=== PATIENT | male | born 1960 | race Two or more races ===

== ENCOUNTER 2019-01-14 03:51 | Inpatient (IN) | payer SELFPAY ==
[~2019-01-14] VITALS: Ht 167.6 cm; Wt 69.0 kg
[2019-01-14 05:51] LABS: Basophils # (auto) 0 uL; Basophils % (auto) 0.3 % (0.0-2.0); Eosinophils # (auto) 0.1 uL; Eosinophils % (auto) 1.8 % (0.0-7.0); Hematocrit 37.1 % (41.0-53.0); Hemoglobin 11.7 g/dL (13.5-17.5); Lymphocytes # (auto) 1.3 uL; Lymphocytes % (auto) 27.1 % (10.0-50.0); Mean Corpuscular Hemoglobin 23.7 pg (28.0-32.0); Mean Corpuscular Hgb Conc. 31.5 g/dL (32.0-36.0); Mean Corpuscular Volume 75.3 fL (80.0-100.0); Monocytes # (auto) 0.3 uL; Monocytes % (auto) 5.9 % (0.0-12.0); Neutrophils # (auto) 3.1 uL; Neutrophils % (auto) 64.9 % (37.0-80.0); Nucleated Red Blood Cells % 0.1 %; Platelet Count (auto) 282 10^3/uL (140-450); Red Blood Cells 4.92 10^6/uL (4.5-5.90); Red Cell Distribution Width 17.9 % (11.8-14.3); White Blood Cell 4.8 10^3/uL (4.4-10.8)
[2019-01-14 06:09] LABS: Albumin 3.7 g/dL (3.4-5.0); BUN/Creatinine Ratio 11.9; Magnesium 2.2 mg/dL (1.6-2.6); Potassium 4.1 mmol/L (3.5-5.1)
[2019-01-14 06:13] LABS: Bilirubin, Total 0.3 mg/dL (0.2-1.0); Total Protein 8.1 g/dL (6.4-8.2)
[2019-01-14 06:23] LABS: Partial Thromboplastin Time 25.6 sec (23.78-33.04); Prothrombin Time 10.7 sec (9.27-12.13)
[2019-01-14] MEDS ORDERED: ASPirin 81 mg TAB PO ONE (06:45)
[2019-01-14] MEDS ORDERED: ENOXAPARIN SOD 80 MG/0.8ML SYRINGE SC ONE ×2 (06:45→09:00)
[2019-01-14] MEDS ORDERED: NITROGLYCERIN 0.4 MG SL TAB SL ONE (06:45)
[2019-01-14] MEDS ORDERED: MORPHINE SULFATE 4 MG/ML SYR/VIAL IV ONE (08:30)
[2019-01-14] MEDS ORDERED: ONDANSETRON HCL 4 MG/2 ML VIAL IV ONE (08:30)
[2019-01-14] MEDS ORDERED: MORPHINE SULF INJ 2 MG/ML SYRINGE 1ML IV PRN ×2 (09:00)
[2019-01-14] MEDS ORDERED: hydrALAZINE HCL 20 MG/ML VL IV PRN (09:00)
[2019-01-14] MEDS ORDERED: ONDANSETRON HCL 4 MG/2 ML VIAL IV PRN (09:00)
[2019-01-14] MEDS ORDERED: NITROGLYCERIN 0.4 MG SL TAB SL PRN (09:00)
[2019-01-14] MEDS ORDERED: LISINOPRIL 10 MG TAB PO SCH (10:00)
[2019-01-14] MEDS: PANTOPRAZOLE 40 MG/10 ML VIAL IV SCH (10:00)
[2019-01-14] MEDS: METOPROLOL TARTRATE 25 MG TAB PO SCH ×2 (10:00→21:51)
[2019-01-14] MEDS ORDERED: ASPirin-EC 81 mg tab PO SCH (10:00)
[2019-01-14] MEDS ORDERED: fentaNYL CITRATE 100 MCG/2 ML VL ONE (11:41)
[2019-01-14] MEDS ORDERED: ANGIOMAX 250 MG VIAL IV ONE (11:41)
[2019-01-14] MEDS ORDERED: ATROPINE SULFATE 1 MG/1 ML VIAL ONE (11:41)
[2019-01-14] MEDS ORDERED: SODIUM CHL 0.9% 50 ML ONE (11:42)
[2019-01-14] MEDS ORDERED: EPINEPHrine HCL 1 MG/10 ML SYRG ONE (11:42)
[2019-01-14] MEDS ORDERED: MIDAZOLAM HCL 1MG/1ML-2 ML VIAL ONE (11:42)
[2019-01-14] MEDS ORDERED: IOHEXOL 350 MG/ML 100ML IJ ONE ×2 (11:42→12:36)
[2019-01-14] MEDS ORDERED: LIDOCAINE 2%HCL (LOCAL ANESTH.) INJ 20ML MDV ONE (11:43)
[2019-01-14] MEDS ORDERED: ASPirin 325 MG TAB ONE (12:43)
[2019-01-14] MEDS ORDERED: CLOPIDOGREL 300 MG TAB ONE (12:43)
[2019-01-14] MEDS ORDERED: LISINOPRIL 5 MG TAB PO ONE (13:45)
[2019-01-14] MEDS: HYDROcodone-ACET 5/325MG TAB PO PRN (14:38)
--- NOTE | 2019-01-14 18:17 | NUR ---
Patient arrived to unit from petroleum refinery laborer. petroleum refinery laborer RN at bedside. Dressing has small amount of bright red drainage. Per denture laboratory technician RN, drainage has not grown since procedure. Patient oriented to unit and call light. Bed is locked and in the lowest position. Side rails up x2. maintenance department manager is HC 33 and patient has NSR at 71 bpm. Patient denies CP. No distress noted. Will continue care.
[2019-01-14 18:22] VITALS: BP 120/74
--- NOTE | 2019-01-14 19:25 | NUR ---
Opening Shift Note Received report from manju Hong RN. Assumed care of patient, awake and alert. No S/S of distress/SOB or pain. Family at bedside. Instructed on POC and to call for assist PRN, will continue to monitor for changes Q1hr and PRN. Bed placed in lowest position, and call light within reach.
--- NOTE | 2019-01-14 19:28 | NUR ---
Change of shift given to split leather mosser RN. No distress noted. bale breaker operator RN at bedside observing dressing.
[2019-01-14 20:00] VITALS: BP 113/69
[2019-01-14] MEDS: ATORVASTATIN 20 MG TAB PO SCH (21:46)
[2019-01-14] MEDS: CARVEDILOL 3.125 MG TAB PO SCH (21:48)
[2019-01-14] MEDS: ACETAMINOPHEN 500 MG TAB PO PRN (21:48)
[2019-01-14 22:00] VITALS: BP 113/69
[2019-01-14] MEDS ORDERED: ATORVASTATIN 20 MG TAB PO SCH (22:00)
--- NOTE | 2019-01-14 22:57 | NUR ---
DRESSING TO RIGHT GROIN IS CLEAN, DRY AND INTACT.
[2019-01-15] MEDS: HYDROcodone-ACET 5/325MG TAB PO PRN ×3 (03:55→17:49)
[2019-01-15 06:33] LABS: Basophils # (auto) 0 uL; Hemoglobin 10.5 g/dL (13.5-17.5); Lymphocytes # (auto) 0.8 uL; Lymphocytes % (auto) 14.6 % (10.0-50.0); Mean Corpuscular Hgb Conc. 31.3 g/dL (32.0-36.0); Monocytes # (auto) 0.4 uL; Red Blood Cells 4.46 10^6/uL (4.5-5.90)
[2019-01-15 06:35] LABS: Basophils % (auto) 0.3 % (0.0-2.0); Eosinophils # (auto) 0 uL; Eosinophils % (auto) 0.9 % (0.0-7.0); Hematocrit 33.7 % (41.0-53.0); Mean Corpuscular Hemoglobin 23.6 pg (28.0-32.0); Mean Corpuscular Volume 75.5 fL (80.0-100.0); Monocytes % (auto) 7.5 % (0.0-12.0); Neutrophils % (auto) 76.7 % (37.0-80.0); Platelet Count (auto) 234 10^3/uL (140-450); White Blood Cell 5.2 10^3/uL (4.4-10.8)
[2019-01-15 06:50] LABS: Calcium 8.4 mg/dL (8.5-10.1)
[2019-01-15 06:54] LABS: INR 1.01 (0.9-1.15); Partial Thromboplastin Time 27.3 sec (23.78-33.04); Prothrombin Time 10.8 sec (9.27-12.13)
[2019-01-15 06:56] LABS: Cholesterol 204 mg/dL (< 200); HDL Cholesterol 32 mg/dL (40-59); LDL Cholesterol 151 mg/dL (< 100); Triglycerides 216 mg/dL (< 150)
--- NOTE | 2019-01-15 08:00 | NUR ---
Opening Shift Note Assumed care of patient, awake, alert and oriented X4. No S/S of distress/SOB or pain. Tele# 33, sinus rhythm @ 88 bpm. IV to right hand, 20 gauge, patent and saline locked. Right groin dressing clean, dry and intact,s/p left heart catheterization, distal pulses strong. Instructed on POC and to call for assist PRN, verbalized understanding. Bed locked, in lowest position, call light within reach, will continue to monitor for changes Q1hr and PRN.
[2019-01-15 08:30] VITALS: BP 108/66
[2019-01-15] MEDS: ACETAMINOPHEN 500 MG TAB PO PRN ×2 (09:23→17:50)
[2019-01-15] MEDS: ASPirin 81 mg TAB PO SCH (10:40)
[2019-01-15] MEDS: PANTOPRAZOLE 40 MG/10 ML VIAL IV SCH (10:40)
[2019-01-15] MEDS: CLOPIDOGREL BISULFATE 75 MG TAB PO SCH (10:41)
[2019-01-15] MEDS: METOPROLOL TARTRATE 25 MG TAB PO SCH ×2 (10:41→21:35)
[2019-01-15] MEDS: CARVEDILOL 3.125 MG TAB PO SCH ×2 (10:41→21:34)
[2019-01-15] MEDS: LISINOPRIL 5 MG TAB PO SCH (10:42)
[2019-01-15 12:29] VITALS: BP 115/63
[2019-01-15 17:00] VITALS: BP 95/62
--- NOTE | 2019-01-15 17:08 | NUR ---
assessment Per consult needs PCP, request advanced directive. Stephania Kingsley to see patient for PCP. Patient has been provided with advanced directive. Addendum: 01/15/19 at 1709 by Stephania Bennett Amended: Links added.
--- NOTE | 2019-01-15 19:14 | NUR ---
Care endorsed to WINSTON Lofton, night nurse.
--- NOTE | 2019-01-15 19:30 | NUR ---
ASSUMED CARE, PT. AWAKE, RELATIVES AT BEDSIDE, NO C/O PAIN, DRESSING ON RT. GROIN DRY AND INTACT, NO SOB.
[2019-01-15] MEDS: ATORVASTATIN 20 MG TAB PO SCH (21:34)
[2019-01-15 22:00] VITALS: BP 111/66
[2019-01-16 05:00] VITALS: BP 111/65
--- NOTE | 2019-01-16 08:00 | NUR ---
Opening Shift Note Assumed care of patient, awake, alert and oriented X4. No S/S of distress/SOB or pain. Tele# 33, sinus rhythm @ 81 bpm. IV to right hand, 20 gauge, patent and saline locked. Right groin incision with dressing clean, dry and intact, s/p left heart cath. Pedal pulses on affected leg assessed for positive tissue perfusion. Instructed on POC and to call for assist PRN, verbalized understanding. Bed locked, in lowest position, call light within reach, will continue to monitor for changes Q1hr and PRN.
[2019-01-16] MEDS: ACETAMINOPHEN 500 MG TAB PO PRN (08:15)
[2019-01-16 09:00] VITALS: BP 109/64
[2019-01-16] MEDS: ASPirin 81 mg TAB PO SCH (09:48)
[2019-01-16] MEDS: PANTOPRAZOLE 40 MG/10 ML VIAL IV SCH (09:48)
[2019-01-16] MEDS: CARVEDILOL 3.125 MG TAB PO SCH (09:49)
[2019-01-16] MEDS: METOPROLOL TARTRATE 25 MG TAB PO SCH (09:49)
[2019-01-16] MEDS: CLOPIDOGREL BISULFATE 75 MG TAB PO SCH (09:50)
[2019-01-16] MEDS: LISINOPRIL 5 MG TAB PO SCH (09:50)
[2019-01-16 13:00] VITALS: BP 120/75
[2019-01-16 13:18] VITALS: BP 109/64
== END 2019-01-16 15:20 | disposition home or self-care (01) | DRG 249 ==
LOC: ER 03:59 → TELE 08:53 → TELE-WESTW 18:24
PROVIDERS: ADMIT Nurse Practitioner Acute Care; ATTEND Internal Medicine Pulmonary Disease
PROC: B2151ZZ Fluoroscopy of Left Heart using Low Osmolar Contrast (ICD-10-PCS; principal; 2019-01-14)
PROC: 02703DZ Dilation of Coronary Artery, One Artery with Intraluminal Device, Percutaneous Approach (ICD-10-PCS; 2019-01-14)
PROC: 02C03ZZ Extirpation of Matter from Coronary Artery, One Artery, Percutaneous Approach (ICD-10-PCS; 2019-01-14)
PROC: 4A023N7 Measurement of Cardiac Sampling and Pressure, Left Heart, Percutaneous Approach (ICD-10-PCS; 2019-01-14)
PROC: B2111ZZ Fluoroscopy of Multiple Coronary Arteries using Low Osmolar Contrast (ICD-10-PCS; 2019-01-14)
DX: I21.4 Non-ST elevation (NSTEMI) myocardial infarction (principal); D64.9 Anemia, unspecified; F19.10 Other psychoactive substance abuse, uncomplicated; E11.65 Type 2 diabetes mellitus with hyperglycemia; E78.5 Hyperlipidemia, unspecified; F10.10 Alcohol abuse, uncomplicated; Y90.9 Presence of alcohol in blood, level not specified; F17.200 Nicotine dependence, unspecified, uncomplicated; I10 Essential (primary) hypertension; J44.9 Chronic obstructive pulmonary disease, unspecified; Z82.49 Family history of ischemic heart disease and other diseases of the circulatory system
CPT/HCPCS: 36415; 71046; 80048; 80053; 80061; 83036; 83735; 83880; 84443; 84484; 85025; 85610; 85730; 86141; 93005; 93306; 96372; 96374; 96375; 99152; A6257; C1874; C9113; G0378; J0461; J2250; J2405

== ENCOUNTER 2019-06-14 08:30 | Inpatient (IN) | payer MEDICAID | END 2019-06-15 01:52 | disposition short-term general hospital (02) | LOC: CATH 08:30 → TELE-WESTW 13:55 | PROC: 4A023N8 Measurement of Cardiac Sampling and Pressure, Bilateral, Percutaneous Approach (ICD-10-PCS; principal; ~2019-06-14) | PROC: B2061ZZ Plain Radiography of Right and Left Heart using Low Osmolar Contrast (ICD-10-PCS; ~2019-06-14) | PROC: B2011ZZ Plain Radiography of Multiple Coronary Arteries using Low Osmolar Contrast (ICD-10-PCS; ~2019-06-14) | DX: I25.10 Atherosclerotic heart disease of native coronary artery without angina pectoris (principal); I10 Essential (primary) hypertension ==

== ENCOUNTER → 2021-11-08 | Outpatient (CLI) | payer MEDICARE, MEDICAID ==
[~2021-11-08] MED LIST: ASPI-543 PO; ATOR40TA52 PO; CLOP75TA70 PO; IOHEXOL 350 MG/ML 100ML IJ ONE; LISI-275 PO; METF-370 PO; METO25TA5 PO
[2021-11-08 13:20] VITALS: BP 130/78
[2021-11-08 14:42] VITALS: BP 147/72
== END | disposition home or self-care (01) ==
LOC: Rad HDHVI 12:45
PROVIDERS: ATTEND Internal Medicine Cardiovascular Disease
DX: R94.4 Abnormal results of kidney function studies (principal); R51.9 Headache, unspecified
CPT/HCPCS: 36415; 70470; 82565; G0463; Q9967

== ENCOUNTER → 2022-09-01 | Outpatient (CLI) | payer MEDICARE, MEDICAID ==
[~2022-09-01] MED LIST changes: -IOHEXOL 350 MG/ML 100ML IJ ONE
[2022-09-01 11:08] LABS: Basophils # (auto) 0 10 ^3/uL (0-0.2); Basophils % (auto) 0.3 % (0.0-2.0); Eosinophils # (auto) 0.1 10 ^3/uL (0-0.8); Eosinophils % (auto) 1.6 % (0.0-7.0); Hematocrit 46.4 % (41.0-53.0); Hemoglobin 16.1 g/dL (13.5-17.5); Lymphocytes % (auto) 28.7 % (10.0-50.0); Mean Corpuscular Hemoglobin 31.9 pg (28.0-32.0); Mean Corpuscular Hgb Conc. 34.7 g/dL (32.0-36.0); Mean Corpuscular Volume 91.9 fL (80.0-100.0); Monocytes # (auto) 0.4 10 ^3/uL (0-1.3); Monocytes % (auto) 5.9 % (0.0-12.0); Neutrophils # (auto) 4.5 10 ^3/uL (1.6-8.6); Neutrophils % (auto) 63.5 % (37.0-80.0); Nucleated Red Blood Cells % 0.9 %; Red Blood Cells 5.05 10^6/uL (4.5-5.90); Red Cell Distribution Width 12.5 % (11.8-14.3); White Blood Cell 7.1 10^3/uL (4.4-10.8)
[2022-09-01 11:15] LABS: Urine Blood Negative /uL (Negative); Urine Specific Gravity 1.037 (1.001-1.035)
[2022-09-01 11:30] LABS: Free T4 (Free Thyroxine) 1.26 ng/dL (0.89-1.76)
[2022-09-01 11:31] LABS: Prostate Specific Antigen 0.49 ng/mL (0.0-4.0)
[2022-09-01 11:37] LABS: BUN/Creatinine Ratio 12.9; Calcium 9.4 mg/dL (8.5-10.1); Potassium 4.2 mmol/L (3.5-5.1)
[2022-09-01 11:46] LABS: Albumin 3.8 g/dL (3.4-5.0); Bilirubin, Total 0.7 mg/dL (0.2-1.0)
== END | disposition home or self-care (01) ==
LOC: LAB 08:20
PROVIDERS: ATTEND Internal Medicine Cardiovascular Disease
DX: E11.21 Type 2 diabetes mellitus with diabetic nephropathy (principal); E55.9 Vitamin D deficiency, unspecified
CPT/HCPCS: 36415; 80053; 80061; 81003; 82306; 82607; 83036; 84153; 84403; 84439; 84443; 85025

== ENCOUNTER → 2022-09-02 | Outpatient (CLI) | payer MEDICARE, MEDICAID | END | disposition home or self-care (01) | LOC: Rad HDHVI 08:48 | PROVIDERS: ATTEND Internal Medicine Cardiovascular Disease | DX: I10 Essential (primary) hypertension (principal); E78.5 Hyperlipidemia, unspecified | CPT/HCPCS: 93306 ==

== ENCOUNTER → 2022-09-14 | Outpatient (CLI) | payer MEDICARE, MEDICAID | END | disposition home or self-care (01) | LOC: Rad HDHVI 09:02 | PROVIDERS: ATTEND Internal Medicine Cardiovascular Disease | DX: I65.23 Occlusion and stenosis of bilateral carotid arteries (principal); I10 Essential (primary) hypertension; E78.5 Hyperlipidemia, unspecified | CPT/HCPCS: 93880 ==

== ENCOUNTER → 2023-04-12 | Outpatient (CLI) | payer MEDICARE, MEDICAID ==
[~2023-04-12] VITALS: Ht 167.6 cm; Wt 63.5 kg
[~2023-04-12] MED LIST changes: +ADENOSINE 53 MG in GIVE UN-DILUTED 0 ML IV ONE; +ADENOSINE 90 MG/30 ML INJ IV ONE
== END | disposition home or self-care (01) ==
LOC: Rad HDHVI 14:11
PROVIDERS: ATTEND Internal Medicine Cardiovascular Disease
DX: I10 Essential (primary) hypertension (principal); R07.89 Other chest pain; E78.00 Pure hypercholesterolemia, unspecified; I35.8 Other nonrheumatic aortic valve disorders; E11.40 Type 2 diabetes mellitus with diabetic neuropathy, unspecified; E11.21 Type 2 diabetes mellitus with diabetic nephropathy
CPT/HCPCS: 78452; 93005; 96374; 96375; A9500; J0153

== ENCOUNTER → 2023-05-08 | Outpatient (CLI) | payer MEDICARE, MEDICAID ==
[~2023-05-08] MED LIST changes: -ADENOSINE 53 MG in GIVE UN-DILUTED 0 ML IV ONE; -ADENOSINE 90 MG/30 ML INJ IV ONE; +EMPA1TAB PO; +EZET10TA22 PO; +LINA5TAB PO; +METO-158 PO
[2023-05-08 11:28] VITALS: BP 129/76; PULSE 73; RESP 18; O2SAT 98
[2023-05-08 11:42] VITALS: BP 128/73; PULSE 70; RESP 18; O2SAT 98
== END | disposition home or self-care (01) ==
LOC: CHF HDHVI 11:08
PROVIDERS: ATTEND Internal Medicine Cardiovascular Disease
DX: Z01.818 Encounter for other preprocedural examination (principal); I20.0 Unstable angina; I10 Essential (primary) hypertension
CPT/HCPCS: 93005; G0463

== ENCOUNTER 2023-05-11 06:30 | Day surgery (SDC) | payer MEDICARE, MEDICAID ==
[2023-05-08 12:08] LABS: Basophils # (auto) 0 10 ^3/uL (0-0.2); Basophils % (auto) 0.4 % (0.0-2.0); Eosinophils # (auto) 0.1 10 ^3/uL (0-0.8); Hematocrit 45.5 % (41.0-53.0); Lymphocytes # (auto) 1.7 10 ^3/uL (0.4-5.4); Lymphocytes % (auto) 26.1 % (10.0-50.0); Mean Corpuscular Hemoglobin 32.3 pg (28.0-32.0); Mean Corpuscular Hgb Conc. 35.1 g/dL (32.0-36.0); Mean Corpuscular Volume 92.2 fL (80.0-100.0); Monocytes # (auto) 0.3 10 ^3/uL (0-1.3); Monocytes % (auto) 4.4 % (0.0-12.0); Neutrophils # (auto) 4.4 10 ^3/uL (1.6-8.6); Neutrophils % (auto) 68.1 % (37.0-80.0); Nucleated Red Blood Cells % 0.1 %; Red Blood Cells 4.94 10^6/uL (4.5-5.90); Red Cell Distribution Width 12.2 % (11.8-14.3); White Blood Cell 6.4 10^3/uL (4.4-10.8)
[2023-05-08 12:23] LABS: INR 1.04 (0.9-1.15); Partial Thromboplastin Time 27.1 SEC (24.5-34.5)
[2023-05-08 12:39] LABS: Albumin 3.8 g/dL (3.4-5.0); Calcium 9.2 mg/dL (8.5-10.1); Potassium 4.3 mmol/L (3.5-5.1)
[2023-05-08 12:43] LABS: Bilirubin, Total 0.7 mg/dL (0.2-1.0)
[~2023-05-11] VITALS: Ht 165.1 cm; Wt 63.5 kg
[2023-05-11] VITALS (8 sets, daily range): BP systolic 122–139; BP diastolic 66–87; PULSE 66–73; RESP 15–18; TEMP 97.2; O2SAT 95–98
[~2023-05-11 06:30] MED LIST changes: -EMPA1TAB PO; -EZET10TA22 PO; -LINA5TAB PO; -METO-158 PO
[2023-05-11] MEDS ORDERED: METO-158 PO (09:22)
[2023-05-11] MEDS ORDERED: fentaNYL CITRATE 100 MCG/2 ML VL ONE (09:22)
[2023-05-11] MEDS ORDERED: ANGIOMAX 250 MG VIAL IV ONE (09:22)
[2023-05-11] MEDS ORDERED: LINA5TAB PO (09:22)
[2023-05-11] MEDS ORDERED: EZET10TA22 PO (09:22)
[2023-05-11] MEDS ORDERED: SODIUM CHL 0.9% 50 ML ONE (09:22)
[2023-05-11] MEDS ORDERED: MIDAZOLAM HCL 2MG/2ML 2ml VIAL (1mg/ml) ONE (09:22)
[2023-05-11] MEDS ORDERED: EMPA1TAB PO (09:22)
[2023-05-11] MEDS ORDERED: LIDOCAINE 2%HCL (LOCAL ANESTH.) INJ 20ML MDV ONE (09:24)
[2023-05-11] MEDS ORDERED: IODIXANOL 320MG/ML 100ML BTL IV ONE (09:27)
[2023-05-11] MEDS ORDERED: IOHEXOL 350 MG/ML 100ML IJ ONE (09:44)
[2023-05-11] MEDS ORDERED: CLOPIDOGREL 300 MG TAB ONE (09:56)
== END 2023-05-11 12:30 | disposition home or self-care (01) ==
LOC: CATH 06:30
PROVIDERS: ATTEND Internal Medicine Cardiovascular Disease
DX: R94.39 Abnormal result of other cardiovascular function study (principal); I25.10 Atherosclerotic heart disease of native coronary artery without angina pectoris; I10 Essential (primary) hypertension; E78.00 Pure hypercholesterolemia, unspecified; Z82.49 Family history of ischemic heart disease and other diseases of the circulatory system; Z95.5 Presence of coronary angioplasty implant and graft; Z79.82 Long term (current) use of aspirin; Z87.891 Personal history of nicotine dependence; Z79.899 Other long term (current) drug therapy
CPT/HCPCS: 0715T; 36415; 80053; 85025; 85610; 85730; 93458; C1725; C1760; C1769; C1874; C1887; C1894; C9600; J0583; J1644; J2250; J3010; Q9967; 99152

== ENCOUNTER 2023-12-20 08:35 | Emergency (ER) | payer MEDICARE, MEDICAID ==
[~2023-12-20] VITALS: Ht 157.5 cm; Wt 65.4 kg
[~2023-12-20 08:35] MED LIST changes: -CLOP75TA70 PO; +EMPA1TAB PO; +EZET10TA22 PO; +LINA5TAB PO; -LISI-275 PO; -METF-370 PO; +METO-158 PO; -METO25TA5 PO
[2023-12-20 08:40] VITALS: TEMP 99.4
[2023-12-20 08:49] VITALS: BP 148/85; PULSE 110; RESP 20; O2SAT 99
[2023-12-20] MEDS: methylPREDNISolone SOD SUCC 125 MG/2 ML VL IM ONE (10:01)
[2023-12-20] MEDS ORDERED: PRED20TA2 PO (10:11)
[2023-12-20] MEDS ORDERED: LORA-622 PO (10:11)
[2023-12-21] MEDS ORDERED: HYDR25CA PO (17:25)
[2023-12-21] MEDS ORDERED: PRED20TA2 PO (17:25)
== END 2023-12-20 10:11 | disposition home or self-care (01) ==
LOC: ER 08:35
DX: T78.40XA Allergy, unspecified, initial encounter (principal); E11.9 Type 2 diabetes mellitus without complications; I10 Essential (primary) hypertension; X58.XXXA Exposure to other specified factors, initial encounter
CPT/HCPCS: 96372; 99283; J2930

== ENCOUNTER 2023-12-21 16:17 | Emergency (ER) | payer MEDICARE, MEDICAID ==
[~2023-12-21] VITALS: Ht 157.5 cm; Wt 62.0 kg
[~2023-12-21 16:17] MED LIST changes: +LORA-622 PO; +PRED20TA2 PO
[2023-12-21 16:56] VITALS: BP 120/68; PULSE 90; RESP 18; TEMP 98.1; O2SAT 98
[2023-12-21] MEDS: methylPREDNISolone SOD SUCC 125 MG/2 ML VL IM ONE (17:09)
[2023-12-21] MEDS: EPINEPHrine HCL 1 MG/1 ML AMP SC ONE (17:10)
[2023-12-21] MEDS ORDERED: HYDR25CA PO (17:25)
[2023-12-21] MEDS ORDERED: PRED20TA2 PO (17:25)
== END 2023-12-21 17:33 | disposition home or self-care (01) ==
LOC: ER 16:17
DX: T78.40XA Allergy, unspecified, initial encounter (principal); E11.9 Type 2 diabetes mellitus without complications; I10 Essential (primary) hypertension; X58.XXXA Exposure to other specified factors, initial encounter
CPT/HCPCS: 96372; 99284; J0171; J2930

== ENCOUNTER → 2024-05-15 | Outpatient (CLI) | payer MEDICARE, MEDICAID ==
[~2024-05-15] MED LIST changes: +HYDR25CA PO
== END | disposition home or self-care (01) ==
LOC: Rad HDHVI 14:32
PROVIDERS: ATTEND Internal Medicine Cardiovascular Disease
DX: I73.9 Peripheral vascular disease, unspecified (principal)
CPT/HCPCS: 93880

== ENCOUNTER → 2024-09-18 | Outpatient (CLI) | payer MEDICARE, MEDICAID ==
--- NOTE | 2024-09-18 13:42 | DVH ---
CLINICAL INDICATION: PAIN TECHNIQUE: 3 radiographic views of the right shoulder were obtained. Comparison: None FINDINGS/IMPRESSION: There is no evidence of acute fracture or dislocation. The visualized joint space is well maintained. The alignment is anatomical. There is no radiopaque foreign body.
== END | disposition home or self-care (01) ==
LOC: Rad HDHVI 12:51
PROVIDERS: ATTEND Internal Medicine Cardiovascular Disease
DX: M25.511 Pain in right shoulder (principal)
CPT/HCPCS: 73030

== ENCOUNTER 2025-03-26 10:05 | Outpatient (CLI) | payer MEDICARE, MEDICAID ==
--- NOTE | 2025-03-31 13:41 | DVHSR ---
APPROVED REPORT EXAM: Two-dimensional and M-mode echocardiogram with Doppler and color Doppler. DIMENSIONS LVDd4.7 (3.8-5.7cm)LA (2D)3.3 (1.9-4.0cm)Aortic Root3.0 (2.0-3.7cm) LVDs3.4 (2.5-4.0cm)LA (MM) (1.9-4.0cm)Aortic Cusp Exc1.7 (1.5-2.0cm) EF (%) 55.0 (55-70%)Rt. Atrium2.9 (1.9-4.0cm)Asc. Aorta cm IVSd1.0 (0.7-1.1cm)RV (D)2.7 (1.8-2.4cm) PWd1.0 (0.7-1.1cm) Mitral Valve MitralMitral Stenosis E wave0.64m/sMV Mean GR.mmHg A wave0.85m/sMV Peak GR.40mmHg E/A ratio0.82D MVAcm2 DECEL [id number] 1/2 [place] Aortic Valve Aortic ValveAortic Stenosis V10.67m/Daniela Mean GR.mmHg V21.06m/Daniela Peak GR.5mmHg LVOT Diameter2.1 (1.8-2.4cm)Doppler AVA2.19cm2 Pulmonic Valve V20.92m/s LEFT VENTRICLE The left ventricle is normal size. The left ventricle is normal in structure and function. The Ejection Fraction is within normal limits. The Ejection Fraction is >55%. RIGHT VENTRICLE The right ventricle is normal size. ATRIA The left atrial size is normal. The right atrium size is normal. The interatrial septum is intact with no evidence for an atrial septal defect. MITRAL VALVE The mitral valve is normal in structure and function. Mitral regurgitation is trace to mild. PULMONIC VALVE The pulmonic valve is not well visualized. TRICUSPID VALVE The tricuspid valve is grossly normal. There is trace tricuspid regurgitation. AORTIC VALVE The aortic valve opens well. No aortic regurgitation is present. GREAT VESSELS The aortic root is normal size. PERICARDIAL EFFUSION There is no pericardial effusion. Conclusion MILD MAC EF 55%
== END 2025-03-26 17:00 | disposition home or self-care (01) ==
LOC: Rad HDHVI 10:05
PROVIDERS: ATTEND Internal Medicine Cardiovascular Disease
DX: I34.0 Nonrheumatic mitral (valve) insufficiency (principal); I10 Essential (primary) hypertension
CPT/HCPCS: 93306